=== PATIENT | female | born 1980 | race Caucasian/White ===

== ENCOUNTER → 2017-08-19 08:10 | Outpatient (CLI) | payer OTHER | END | disposition home or self-care (01) | LOC: D.US 08:10 | DX: R10.11 Right upper quadrant pain (principal) ==

== ENCOUNTER → 2017-08-27 06:51 | Outpatient (CLI) | payer OTHER | END | disposition home or self-care (01) | LOC: D.NM 06:51 | DX: R10.11 Right upper quadrant pain (principal); R11.0 Nausea ==

== ENCOUNTER → 2017-09-23 17:25 | Outpatient (CLI) | payer OTHER | END | disposition home or self-care (01) | LOC: D.MAMMO 08-27 14:00 → D.US 08-27 14:30 → D.MAMMO 15:00 | DX: N64.89 Other specified disorders of breast (principal) ==

== ENCOUNTER → 2018-10-27 10:15 | Outpatient (CLI) | payer OTHER | END | disposition home or self-care (01) | LOC: D.US 10:15 | PROVIDERS: ATTEND Surgery | DX: I83.819 Varicose veins of unspecified lower extremity with pain (principal) ==

== ENCOUNTER 2018-12-03 06:01 | Day surgery (SDC) | payer OTHER ==
[~2018-12-03] VITALS: Ht 160 cm; Wt 58.1 kg
[~2018-12-03 06:01] MED LIST: CETIRIZINE HCL5 MG; VITAMIN MULTI
[2018-12-03 06:36] LABS: HEMATOCRIT 38.8 % (36.0-48.0); HEMOGLOBIN 12.9 g/dL (12-16); MCH 30.1 pg (26.0-34.0); MCHC 33.2 g/dL (31.0-37.0); MCV 90.7 fL (80.0-100.0); MEAN PLATELET VOLUME 9.7 fL (7.4-10.4); RBC 4.28 10x6/uL (4.00-5.40); RDW 12.8 % (11.5-14.5); WBC 4.9 10x3/uL (4.8-10.8)
[2018-12-03 07:44] VITALS: BP 109/69; Ht 160 cm; Wt 58.1 kg
[2018-12-03 08:33] LABS: HCG URINE NEGATIVE (NEGATIVE)
--- NOTE | 2018-12-03 11:02 | NUR ---
1045 PATIENT REPOSITIONED FROM SUPINE TO PRONE TO ACCESS BACK OF LEGS, ALL AREAS PADDED AND SECURED WITH NO IMPINGEMENTS, WANG.
--- NOTE | 2018-12-03 11:56 | NUR ---
ASK DR SALGADO TO LOOK AT BLANCHED AREA ON PATIENTS RIGHT GROIN AND UPPER LEG AREA, WARM BLANKET COMPRESS APPLIED IN RECOVERY ROOM, WANG.
== END 2018-12-03 14:20 | disposition home or self-care (01) ==
LOC: D.OPS 06:01 → D.PAN 08:00 → D.OPS 14:20
PROVIDERS: Anesthesiology; ATTEND Surgery
DX: I87.2 Venous insufficiency (chronic) (peripheral) (principal)

== ENCOUNTER 2019-03-30 09:00 | Outpatient (CLI) | payer OTHER ==
[2018-12-03 07:44] VITALS: BMI 22.7
== END 2019-03-30 10:00 | disposition home or self-care (01) ==
LOC: D.MAMMO 09:00 → D.US 11:30 → D.MAMMO 13:00
PROVIDERS: ATTEND Family Medicine
DX: Z12.31 Encounter for screening mammogram for malignant neoplasm of breast (principal)

== ENCOUNTER 2020-04-18 09:01 | Outpatient (CLI) | payer OTHER ==
[2018-12-03 07:44] VITALS: BMI 22.7
== END 2020-04-18 23:59 | disposition home or self-care (01) ==
LOC: D.MAMMO 09:01
PROVIDERS: ATTEND Family Medicine
DX: Z12.31 Encounter for screening mammogram for malignant neoplasm of breast (principal)